=== PATIENT | female | born 1980 | race Caucasian/White ===

== ENCOUNTER 2023-04-24 01:08 | Emergency (ER) | payer SELFPAY ==
[~2023-04-24] VITALS: Ht 170.2 cm; Wt 91.0 kg
[2023-04-24 01:31] VITALS: TEMP 98.7; O2SAT 99
[2023-04-24] MEDS ORDERED: IBUPROFEN 600MG TABLET PO ONE (03:30)
[2023-04-24] MEDS ORDERED: DEXAMETHASONE 1MG TABLET PO ONE (03:30)
[2023-04-24] MEDS ORDERED: DEXAMETHASONE 2MG TABLET PO NR (04:15)
[2023-04-24 04:19] VITALS: BP 122/76; PULSE 89; RESP 18
== END 2023-04-24 04:21 | disposition home or self-care (01) ==
LOC: ER 01:12
DX: J02.9 Acute pharyngitis, unspecified (principal); Z90.49 Acquired absence of other specified parts of digestive tract
CPT/HCPCS: 99283; 87430; 87070; 87077; J8540